=== PATIENT | female | born 1985 | race Caucasian/White ===

== ENCOUNTER 2021-07-15 08:31 | Emergency (ER) | payer OTHER, SELFPAY ==
[2021-07-15 08:44] VITALS: BP 128/92; PULSE 56; RESP 17; TEMP 36.6; O2SAT 97; BMI 35.6
--- NOTE | 2021-07-15 08:49 | HMH.EDGENADL ---
ED Disposition Clinical Impression: Bronchitis, COVID-19 Disposition: Home, Self-Care Condition on Discharge: Good Instructions: DI for Asthma -- Adult, Acute Bronchitis Additional Instructions: follow up pcp as needed Prescriptions: predniSONE [Prednisone 20mg Tab] 60 mg PO DAILY 5 Days #15 tab Transmission Status: Pending to [facility] Azithromycin [Zithromax 500mg Tab Tri-Sanchez] 500 mg PO DAILY #3 tab Transmission Status: Pending to [facility] Referrals: Magdaleno Luis [Primary Care Provider] - - Critical Care Critical Care Time: No Attestation: On 07/15/21, the high probability of a clinically significant, sudden or life threatening deterioration of the following system(s) required my full and direct attention, intervention and personal management. The time I documented below is in addition to time spent performing reported procedures but includes the following listed in this critical care notation. Medical Decision Making - Medical Records Medical records reviewed: Yes: I reviewed the patient's medical records. - Luis Inquiry Pt receiving controlled substance: No Vital Signs: 07/15/21 08:44 Temperature 97.8 F Temperature Source Oral Pulse Rate [Left Radial] 56 L Respiratory Rate 17 Blood Pressure [Right Arm] 128/92 H Blood Pressure Mean [Right Arm] 104 Blood Pressure Source [Right Arm] Automatic Cuff Blood Pressure Position [Right Arm] Sitting 02 Sat by Pulse Oximetry 97 Oxygen Delivery Method Room Air General Adult HPI - General Chief complaint: Shortness of Breath/Dyspnea Stated complaint: soa, covid pos 07/13 Time Seen by Provider: 07/15/21 08:45 Mode of Arrival: Ambulatory Limitations: No Limitations Description of Symptoms (Recalled from ER Triage Doc. by RN): pt to ed c/o soa. pt states she was covid+ wednesday and has increasingly gotten more soa. pt denies any other symptoms. - History of Present Illness HPI narrative: pos covid few days, today c/o wheezing and asthma Radiation: non-radiation Severity: moderate Consistency: intermittent Relieving factors: rest Exacerbating factors: other (activity) Associated symptoms: denies other symptoms - Related Data Home Medications Medication Instructions Recorded Confirmed aripiprazole 2 mg tablet 2 mg PO HS 04/15/21 04/15/21 spironolactone 100 mg tablet 100 mg PO DAILY 04/15/21 04/15/21 venlafaxine 100 mg tablet 100 mg PO DAILY 04/15/21 04/15/21 Previous Rx's Medication Instructions Recorded nystatin 100,000 unit/mL oral 100,000 unit BUCCAL DAILY 10 Days 04/15/21 suspension #10 ml Azithromycin [Zithromax 500mg Tab 500 mg PO DAILY #3 tab 07/15/21 Tri-Sanchez] predniSONE [Prednisone 20mg 60 mg PO DAILY 5 Days #15 tab 07/15/21 Tab] Allergies Allergy/AdvReac Type Severity Reaction Status Date / Time No Known Allergies Allergy Verified 04/15/21 18:34 [facility] History - Hepatitis A Screen Drug use history?: No High risk sexual behaviors?: No History of sexually transmitted infection?: No Currently employed?: No Childcare worker?: No Do you have indoor plumbing?: Yes Do you have electricity?: Yes Attestation statement:: This patient has been screened for Hepatitis A risk factors. Medical History: Reports:: Depression - Social History Smoking Status: Never smoker Alcohol Intake: current Alcohol Intake Frequency:: holidays/special occasions only Occupational Status: employed - Psychiatric History Pschychiatric History:: Reports:: Depression Family Hx:: Non-contributory ROS Obtained: Yes All systems reviewed & no additional complaints Physical Exam - General General appearance: alert, in no apparent distress - Head Head exam: atraumatic, normocephalic - Eye Eye exam: Present: normal appearance, PERRL, EOMI - Chest Chest inspection: Present: normal inspection, symmetric chest wall rise. Absent: tenderness - Respiratory Respiratory exam: Present: normal indu
[2021-07-15 08:55] VITALS: BP 128/92; PULSE 57; RESP 17; TEMP 36.6; O2SAT 98
== END 2021-07-15 08:56 | disposition home or self-care (01) ==
PROVIDERS: Emergency Provider Emergency Medicine; PCP Family Medicine
DX: J20.9 Acute bronchitis, unspecified (principal); U07.1 COVID-19
CPT/HCPCS: 99281

== ENCOUNTER 2022-02-04 19:52 | Emergency (ER) | payer OTHER, SELFPAY ==
[2022-02-04 19:55] VITALS: BP 135/91; PULSE 62; RESP 16; TEMP 36.7; O2SAT 98; BMI 34.2
--- NOTE | 2022-02-04 20:05 | ECG_ITS ---
APPROVED REPORT Exam: Resting ECG HR:59 bpm ECG Measurements Heart Rate 59 AXES AK 124 P 37 QRSd 89 QRS 45 QT 391 T 48 QTc 390 Conclusion SINUS BRADYCARDIA BORDERLINE ECG UNCONFIRMED REPORT Electronically signed by : Jv Sandoval MD 02/06/2022 17:05:45
--- NOTE | 2022-02-04 20:13 | HMH.EDGENADL ---
ED Disposition Clinical Impression: Pneumonia involving right lung Qualifiers: Pneumonia type: due to unspecified organism Lung location: unspecified part of lung Qualified Code(s): J18.9 - Pneumonia, unspecified organism Disposition: Home, Self-Care Condition on Discharge: Good Instructions: DI for Pneumonia -- Adult, DI for Atypical Pneumonia Additional Instructions: You have been evaluated for cough, congestion, shortness of breath, diagnosed with pneumonia on the right side. Please take antibiotics as prescribed. Take 5 more days of steroids. Try to rest. Tylenol and Motrin for aches, pains. Follow-up with your primary care doctor. Return to the emergency department for any new or worsening symptoms, chest pain, difficulty breathing, any other concerns. Prescriptions: predniSONE [Prednisone 20mg Tab] 40 mg PO BID #10 tab Transmission Status: Pending to [facility] Azithromycin [Z-Sanchez 250mg Tab] 250 mg PO DIRECTED #6 tab [facility] Referrals: Magdaleno Luis [Primary Care Provider] - Forms: Work/School Release Time of Disposition: 22:18 - Critical Care Critical Care Time: No Attestation: On , the high probability of a clinically significant, sudden or life threatening deterioration of the following system(s) required my full and direct attention, intervention and personal management. The time I documented below is in addition to time spent performing reported procedures but includes the following listed in this critical care notation. Medical Decision Making - Medical Records Medical records reviewed: Yes: I reviewed the patient's medical records. - Luis Inquiry Pt receiving controlled substance: No Vital Signs: 02/04/22 19:55 Temperature 98.1 F Temperature Source Oral Pulse Rate [Right] 62 Respiratory Rate 16 Blood Pressure [Right Arm] 135/91 H Blood Pressure Mean [Right Arm] 105 Blood Pressure Source [Right Arm] Automatic Cuff 02 Sat by Pulse Oximetry 98 Oxygen Delivery Method Room Air - Lab Data Lab Results 02/04/22 20:05: WBC 10.9 H, RBC 5.07, Hgb 15.0, Hct 46.1, MCV 91.1, MCH 29.5, MCHC 32.4, RDW 13.1, Plt Count 300, MPV 7.7, Neut % (Auto) 87.2 H, Lymph % (Auto) 8.3 L, [place] % (Auto) 2.7, Eos % (Auto) 0.3, Baso % (Auto) 1.5, Neut # (Auto) 9.5 H, Lymph # (Auto) 0.9, [place] # (Auto) 0.3, Eos # (Auto) 0.0, Baso # (Auto) 0.2, ESR 17 02/04/22 20:05: Sodium 139, Potassium 4.4, Chloride 104, Carbon Dioxide 26, Anion Gap 13.4, BUN 11, Creatinine 0.60, Estimated Creat Clear 195, Estimated GFR 114, Est GFR ( Amer) 138, Glucose 154 H, Calcium 10.0, Total Bilirubin 0.1 L, AST 33, ALT 35, Alkaline Phosphatase 109, Troponin I < 0.01, C-Reactive Protein 2.9, NT-Pro-B Natriuret Pep 28.0, Total Protein 8.0, Albumin 4.6, Globulin 3.4 H, Albumin/Globulin Ratio 1.4 02/04/22 20:05: SARS-CoV-2 (PCR) Not detected, Influenza A Untype (PCR) Not detected, Influenza Type B (PCR) Not detected Result diagrams: 02/04/22 20:05 02/04/22 20:05 Orders (Tests/Meds): ORDERS Category Date Time Status Complete Blood Count Auto Diff Stat Lab 02/04/22 20:05 Results Erythrocyte Sedimentation Rate Stat Lab 02/04/22 20:05 Results Troponin I Q3H Lab 02/04/22 23:15 Ordered Troponin I Q3H Lab 02/05/22 02:15 Ordered ECG Request by /Helga Stat Y 02/04/22 20:14 Ordered - Radiology Data #1 Image(s): Chest Image Reviewed: Yes I reviewed the patient's radiology results, Yes I have reviewed radiologist's interpretation Preliminary Findings: Normal/NAD IMPRESSION: 1. Small focus of reticulonodular interstitial prominence in the right upper lobe lateral to the hilum, which may just be prominent vascular shadows, or this could be a small focus of infection. 2. No consolidation. 3. Additional nonemergency and chronic findings as above. - ECG Data Tracing #1 Sinus rhythm with ventricular rate of 59 bpm. QRS 89, QTc 390. T wave in
--- NOTE | 2022-02-04 20:14 | XR_ITS ---
PROCEDURE INFORMATION: Exam: XR Chest Exam date and time: 02/04/2022 8:10 PM Age: 36 years old Clinical indication: Cough and shortness of breath; Sternal or substernal pain; Additional info: Short of breath, cough TECHNIQUE: Imaging protocol: Radiologic exam of the chest. Views: 2 views. COMPARISON: No relevant prior studies available. FINDINGS: Tubes, catheters and devices: Overlying rn cardiac electrodes. Lungs: Mild hypoventilation/low lung volumes. No consolidation. Question mild reticulonodular opacities lateral to the upper right hilum, projected over the posterior right 6th rib, which may be prominent vascular shadows versus infection. No focal retrosternal findings are seen on the lateral chest radiograph. Pulmonary vessels do not appear significantly congested. Pleural spaces: Unremarkable. No significant pleural effusion. No pneumothorax. Heart/Mediastinum: The cardiac silhouette is normal. Bones/joints: No acute fracture or listhesis. The sternum appears intact, as visualized. Organs: Cholecystectomy clips. IMPRESSION: 1. Small focus of reticulonodular interstitial prominence in the right upper lobe lateral to the hilum, which may just be prominent vascular shadows, or this could be a small focus of infection. 2. No consolidation. 3. Additional nonemergency and chronic findings as above.
[2022-02-04 20:34] LABS: Basophils # 0.2 K/mm3 (0-0.2); Basophils % 1.5 % (0.1-2.0); Eosinophils % 0.3 % (0.1-12.0); Hematocrit 46.1 % (37.0-47.0); Lymphocytes # 0.9 K/mm3 (0.7-4.5); Lymphocytes % 8.3 % (10-50); Mean Corpuscular HGB Conc 32.4 g/dL (31.8-35.4); Mean Corpuscular Hemoglobin 29.5 pg (27.0-31.2); Mean Corpuscular Volume 91.1 fl (81-99); Mean Platelet Volume 7.7 fl (7.4-10.4); Monocytes # 0.3 K/mm3 (0.1-1.0); Monocytes % 2.7 % (1.7-9.3); Neutrophils # 9.5 K/mm3 (1.8-7.8); Neutrophils % 87.2 % (37.0-80.0); Platelet Count 300 K/mm3 (142-424); Red Blood Count 5.07 M/mm3 (4.20-5.40); Red Cell Distribution Width 13.1 % (11.5-17.5); White Blood Count 10.9 K/mm3 (4.8-10.8)
[2022-02-04 20:52] LABS: MANUAL DIFFERENTIAL MANUAL DIFFERENTIAL (MANUAL DIFF)
[2022-02-04 20:58] LABS: Coronavirus 19, PCR Not Detected (NotDetected); Influenza A, PCR Not Detected (NotDetected); Influenza B, PCR Not Detected (NotDetected)
[2022-02-04 21:12] LABS: Erythrocyte Sedimentation Rate 17 mm/hr (0-20)
[2022-02-04 21:30] LABS: Alanine Aminotransferase 35 U/L (12-78); Albumin Level 4.6 g/dl (3.5-5.0); Albumin/Globulin Ratio 1.4 (1.1-1.8); Alkaline Phosphatase 109 U/L (38-126); Anion Gap 13.4 mEq/L (5-15); Aspartate Amino Transferase 33 U/L (14-36); Blood Urea Nitrogen 11 mg/dl (7-17); Carbon Dioxide 26 mmol/L (22.0-30.0); Chloride 104 mmol/L (98-107); Creatinine Clearance Estimated 195 mL/min (50-200); Estimated Glomerular Filt Rate 114 ml/min (>60); GFR (African American) 138 ML/MIN (>60); Globulin 3.4 g/dL (1.3-3.2); Glucose 154 mg/dl (74-100); Potassium 4.4 mmoL/L (3.5-5.1); Sodium 139 mmol/L (136-145)
[2022-02-04 21:36] LABS: Bilirubin,Total 0.1 mg/dl (0.2-1.3); C-Reactive Protein 2.9 mg/L (0-4)
[2022-02-04 21:58] LABS: Troponin I < 0.01 ng/ml (0.00-0.034)
[2022-02-04 22:15] VITALS: BP 125/81; PULSE 55; RESP 16; TEMP 36.7; O2SAT 98
[2022-02-04 22:18] LABS: Hypochromasia 1+; Lymphocytes % 8 % (10-50); Monocytes % 5 % (2-9); Neutrophils % 87 % (42-76); Platelet Estimate Normal; Total Cells Counted 100
== END 2022-02-04 22:25 | disposition home or self-care (01) ==
PROVIDERS: Emergency Provider Emergency Medicine; PCP Family Medicine
DX: J18.9 Pneumonia, unspecified organism (principal); R07.9 Chest pain, unspecified; R53.81 Other malaise; R53.82 Chronic fatigue, unspecified; Z20.822 Contact with and (suspected) exposure to COVID-19; M94.0 Chondrocostal junction syndrome [Tietze]; J45.909 Unspecified asthma, uncomplicated; F32.A Depression, unspecified; Z79.52 Long term (current) use of systemic steroids
CPT/HCPCS: 71046; 80053; 83880; 84484; 85007; 85025; 85651; 86140; 93005; 99284; C9803; U0003; U0005

== ENCOUNTER → 2022-04-21 13:55 | Outpatient (POV) | payer OTHER, SELFPAY | PROVIDERS: Visit Provider Dermatology | DX: Z00.00 Encounter for general adult medical examination without abnormal findings (principal) ==

== ENCOUNTER → 2023-05-06 14:36 | Outpatient (CLI) | payer OTHER, SELFPAY | PROVIDERS: PCP Family Medicine; Visit Provider Nurse Practitioner Family | DX: J06.9 Acute upper respiratory infection, unspecified (principal) | CPT/HCPCS: 87635 ==

== ENCOUNTER → 2023-06-01 14:07 | Outpatient (CLI) | payer OTHER, SELFPAY ==
[2023-06-01 13:54] LABS: Adenovirus,PCR Not Detected (NotDetected); Coronavirus 229E Not Detected (NotDetected); Coronavirus NL63 Not Detected (NotDetected); Coronavirus OC43 Not Detected (NotDetected); Coronovirus HKU1,PCR Not Detected (NotDetected); Human Metapneumovirus Not Detected (NotDetected); Influenza A, PCR Not Detected (NotDetected); Influenza AH1, 2009 Not Detected (NotDetected); Influenza AH1, PCR Not Detected (NotDetected); Influenza AH3,PCR Not Detected (NotDetected); Influenza B, PCR Not Detected (NotDetected); Parainfluenza 1, PCR Not Detected (NotDetected); Parainfluenza 2, PCR Not Detected (NotDetected); Parainfluenza 3, PCR Not Detected (NotDetected); Parainfluenza 4, PCR Not Detected (NotDetected); Respiratory Syncytial Virus Not Detected (NotDetected); Rhinovirus/Enterovirus Not Detected (NotDetected)
[2023-06-01 20:35] LABS: Coronavirus 19, PCR Detected (NotDetected)
== END ==
PROVIDERS: PCP Internal Medicine; Visit Provider Internal Medicine
DX: J06.9 Acute upper respiratory infection, unspecified (principal); U07.1 COVID-19
CPT/HCPCS: 87632; 87635

== ENCOUNTER 2023-07-27 16:05 | Outpatient (CLI) | payer OTHER, SELFPAY ==
[2023-07-27 16:37] LABS: Basophils % 0.4 % (0.1-2.0); Eosinophils # 0.1 K/mm3 (0.0-0.4); Hematocrit 42.6 % (37.0-47.0); Hemoglobin 14.3 g/dL (12.2-16.2); Lymphocytes # 2.8 K/mm3 (0.7-4.5); Lymphocytes % 36.8 % (10-50); Mean Corpuscular HGB Conc 33.5 g/dL (31.8-35.4); Mean Corpuscular Hemoglobin 29.7 pg (27.0-31.2); Mean Corpuscular Volume 88.5 fl (81-99); Mean Platelet Volume 7.5 fl (7.4-10.4); Monocytes # 0.3 K/mm3 (0.1-1.0); Monocytes % 4.4 % (1.7-9.3); Neutrophils # 4.3 K/mm3 (1.8-7.8); Neutrophils % 57.5 % (37.0-80.0); Platelet Count 209 K/mm3 (142-424); Red Blood Count 4.81 M/mm3 (4.20-5.40); Red Cell Distribution Width 13.1 % (11.5-17.5); White Blood Count 7.5 K/mm3 (4.8-10.8)
[2023-07-27 16:54] LABS: Alanine Aminotransferase 51 U/L (12-78); Albumin Level 4.6 g/dl (3.5-5.0); Alkaline Phosphatase 72 U/L (38-126); Anion Gap 10.1 mEq/L (5-15); Aspartate Amino Transferase 53 U/L (14-36); Bilirubin,Direct 0.2 mg/dl (0.0-0.4); Bilirubin,Indirect 0.3 mg/dL (0.0-0.9); Bilirubin,Total 0.5 mg/dl (0.2-1.3); Bilirubin,Unconjugated 0.3 mg/dL (0.0-1.1); Blood Urea Nitrogen 9 mg/dl (7-17); Calcium 9.2 mg/dl (8.4-10.2); Carbon Dioxide 29 mmol/L (22.0-30.0); Chloride 103 mmol/L (98-107); Chol/HDL Ratio 4.2 (1-3.5); Cholesterol 158 mg/dl (140-200); Estimated Glomerular Filt Rate 114 ml/min (>60); GFR (African American) 138 ML/MIN (>60); Glucose 94 mg/dl (74-100); HDL Cholesterol 38 mg/dl (40-60); Potassium 4.1 mmoL/L (3.5-5.1); Sodium 138 mmol/L (136-145); Total Protein,Serum 7.5 g/dl (6.3-8.2); Triglycerides 93 mg/dl (30-150); VLDL Cholesterol 19 mg/dL (0-40)
[2023-07-27 17:05] LABS: Direct LDL Cholesterol 82.01 mg/dL (100-129)
[2023-07-27 17:25] LABS: Thyroid Stimulating Hormone 1.01 uIU/mL (0.465-4.68)
[2023-07-27 17:27] LABS: Troponin I < 0.01 ng/ml (0.00-0.034)
[2023-07-27 18:01] LABS: Free T4 (Free Thyroxine) 0.95 ng/dl (0.78-2.19)
--- NOTE | 2023-07-27 20:07 | ECG_ITS ---
APPROVED REPORT Exam: Resting ECG HR:55 bpm ECG Measurements Heart Rate 55 AXES VA 135 P 21 QRSd 96 QRS 4 QT 438 T 11 QTc 427 Conclusion SINUS BRADYCARDIA BORDERLINE ECG UNCONFIRMED REPORT Electronically signed by : Jv Sandoval MD 07/28/2023 21:46:27
[2023-07-27 20:15] LABS: Troponin I < 0.01 ng/ml (0.00-0.034)
[2023-07-27 20:19] VITALS: BMI 37.2
== END 2023-07-27 23:59 ==
PROVIDERS: PCP Family Medicine; Visit Provider Internal Medicine
DX: R00.1 Bradycardia, unspecified (principal); R06.00 Dyspnea, unspecified; R07.89 Other chest pain; R07.9 Chest pain, unspecified; R53.83 Other fatigue; Z82.49 Family history of ischemic heart disease and other diseases of the circulatory system
CPT/HCPCS: 36415; 80048; 80061; 80076; 83735; 84439; 84443; 84484; 85025; 93005

== ENCOUNTER 2023-07-29 07:55 | Outpatient (CLI) | payer OTHER, SELFPAY ==
[2023-07-28 14:24] VITALS: BMI 36.0
[2023-07-29] VITALS (8 sets, daily range): BP systolic 90–124; BP diastolic 53–83; PULSE 52–67; RESP 16–17; TEMP 36.3; O2SAT 96–100
--- NOTE | 2023-07-29 07:55 | CT_ITS ---
APPROVED REPORT Cyber Defense Forensics Analyst: CLINICAL INDICATION Chest Pain TECHNIQUE Image Acquisition: A 128 slice MDCT scanner ([employer] ZeaVisiona View) was used for data acquisition. A noncontrast coronary calcium scan was performed. A CT attenuation threshold of 130 Hounsfield units (HU) was used for the detection of calcium in contiguous voxels of 1 sq mm in area to be counted as individual lesions. Bolus tracking in the ascending aorta with a threshold of 180 HU was performed. Immediately afterwards, ECG synchronized cardiac CT was then performed from the cardiac base to apex using retrospective gating with ECG tube current modulation. A total of 85 mL of Isovue 370 mg/mL contrast medium was administered at 5 mL/sec followed by a saline flush using a biphasic injection protocol. A tube voltage of 120 KVp was used. The patient received the following medications prior to the cardiac CT. 0.8 mg of sublingual nitroglycerin The average heart rate at the time of acquisition was 57 bpm and regular. Image Reconstruction Transaxial images were reconstructed at 0.67 mm slide thickness. Data was reviewed interactively on an advanced workstation capable of 2 and 3-dimensional displays in all conventional reconstruction formats, including multiplanar reformations, maximum intensity projections, curved multiplanar reformations, and volume rendered reconstructions. When applicable, selected routine images describing the relevant coronary anatomy and pathology were saved and sent to PACS. Complications None Technical Quality Overall image quality was good. Coronary artery opacification was adequate. Total DLP (Dose-Length Product) is 1492.4 mGy-cm. The reported value represents the total of one or more individual components during the CT acquisition of this date and at this time, and as such, the same value may appear in more than one CT report depending on the interpreting/reporting physicians. COMPARISON None FINDINGS CT Coronary Calcium Scoring LMA (Left Main Artery) = 0 LAD (Left Anterior Descending) = 0 LCX (Left Coronary Circumflex) = 0 RCA (Right Coronary Artery) = 0 Total Calcium Score = 0 using the AJ-130 method. The interpretation of the calcium heart score is based on the following continuum*: 0 = no calcified plaque detected (risk of coronary artery disease is very low ??? less than 5%) 1-10 = calcium detected in extremely minimal levels (risk of coronary diseases is still low ??? less than 10%) 11-100 = mild levels of plaque detected with certainty (mild or minimal narrowing of heart arteries is likely) 101-400 = definite,at least moderate levels of plaque detected (relatively high risk of a heart attack within 3-5 years) >401-999 = extensive levels of plaque detected (high risk of heart attack, high levels of vascular disease are present, high likelihood of at least one significant coronary narrowing) *The calcium heart score quantifies the burden of coronary calcification/plaque in the coronary arteries. The calcium heart score is not able to evaluate the presence or burden of non-calcified (i.e. soft) plaque. There is no identifiable calcification in the aortic valve, mitral annulus or mitral valve, pericardium, or myocardium. Coronary CT Angiography The coronary arterial system is right dominant. Quantitative Stenosis Grading: Left Main (LM): The left main originates normally from the left sinus of Valsalva. The LM bifurcates into the left anterior descending artery and left circumflex artery. The LM is patent with no evidence of atherosclerosis. Left Anterior Descending (LAD) and Diagonal Branches: The LAD gives off 2 diagonal branches. The LAD and its branches are patent with no evidence of atherosclerosis. There is no evidence of LAD bridge. Left Circumflex (LCX) and Obtuse Marginals (OM): The LCX gives off 2 Obtuse Marginal (OM) branches. The LCX and its branches are patent with no evidence of atherosclerosis. Right Coronary Artery (RCA): The RCA originates normally from the right sinus of Valsalva. The RCA gives off a posterior descending artery (PDA) and posterolateral (PL) branches. The RCA and its branches are patent with no evidence of atherosclerosis. Non-Coronary Cardiac Findings: Analysis of the left ventricular (LV) structure and function was performed after 3-D reconstruction of the LV from axial images, with user-corrected automatic contouring for assessment of LV volumes and user-defined reconstruction from oblique planes for measurement of 3-D cardiac structure and function. LVEDV: 189 mL LVESV: 91 mL SV: 98 mL LVEF: 52% -The left ventricle is normal in size with normal left ventricular systolic function. -There is no left atrial appendage filling defect. Two right pulmonary veins and two left pulmonary veins drain normally into the left atrium. -No pericardial thickening or calcification. -Central and branch pulmonary arteries in the [id number] are unremarkable. -Thoracic aorta within the visualized thoracic aortic-branches in the [id number] is unremarkable. Extracardiac Structures Hiatal hernia is present. IMPRESSION -No coronary calcification with an Agatston score = 0 using the AJ-130 method. -No evidence of significant flow-limiting atherosclerosis of the coronary arteries. No evidence of coronary anomalies. -CAD-RADS 0. Management recommendations per ACC/AHA guidelines*, as clinically appropriate. -Hiatal hernia is incidentally noted. *Recommendations: CAD RADS 0: Reassurance. Consider non-atherosclerotic causes of chest pain. CAD RADS 1: Consider non-atherosclerotic causes of chest pain. Consider preventive therapy and risk factor modification. CAD RADS 2: Consider non-atherosclerotic causes of chest pain. Consider preventive therapy and risk factor modification, particularly for patients with nonobstructive plaque in multiple segments. CAD RADS 3: Consider further functional testing. Consider symptom-guided anti-ischemic and preventive pharmacotherapy as well as risk factor modification per published guideline statements. CAD RADS 4A: Consider further functional testing or invasive coronary angiography with revascularization per published guideline statements. Consider symptom-guided anti-ischemic and preventive pharmacotherapy as well as risk factor modification per published guideline statements. CAD RADS 4B: Invasive coronary angiography recommended with revascularization per published guideline statements. Consider symptom-guided anti-ischemic and preventive pharmacotherapy as well as risk factor modification per published guideline statements. CAD RADS 5: Consider invasive angiography and/or viability assessment with revascularization per published guideline statements. Consider symptom-guided anti-ischemic and preventive pharmacotherapy as well as risk factor modification per published guideline statements. CRITICAL RESULT None COMMUNICATION Per this written report The coronary and cardiac findings of this CCTA were reviewed, reported, and signed by Alcides Alcala MD ([employer]) Conclusion Electronically signed by : Kira Alcala MD 07/29/2023 12:26:00
[2023-07-29] MEDS: NITROGLYCERIN 0.4MG SL TABLET SL (08:37)
[2023-07-29] MEDS: 0.9 % SODIUM CHLORIDE 50 ML VIAL IV (08:53)
[2023-07-29] MEDS: IOPAMIDOL-370 (76%);100ML BOTTLE 100 ML IV (08:53)
[2023-07-29] MEDS: SODIUM CHLORIDE 0.9% 10ML SYR (RAD ONLY) 10 ML IV (08:54)
--- NOTE | 2023-07-29 09:23 | CA_ITS ---
APPROVED REPORT EXAM: Comprehensive 2D, Doppler, and color-flow Echocardiogram Curing Supervisor: Rosie Ji RVT Ht: 5 ft 4 in Wt: 210lbs BSA: 2.00 BP: 135/77 mmHg Indications: CP,BRADYCARDIA,CROOK,HLD,FATIGUE 2D Dimensions LA Volume 52.10 mL LA Volume Index 26.05 mL/m2 (M/F) 16-34 M-Mode Dimensions RVDd 2.94 cm (0.9-2.6) LA Diam 3.26 cm (1.9-4.0) LVDd 3.69 cm (3.5-5.7) LVDs 2.30 cm (3.5-5.7) IVSd 0.83 cm (0.6-1.1) PWd 0.64 cm (0.6-1.1) EF (Teich) 68.70% FS 37.70% EDV (Teich) 57.80 mL TAPSE 2.65 (<1.7) ESV (Teich) 18.10 mL LV Diastology E Decel Time 150 (160-240 msec) E/A Ratio 1.9 Aortic Valve JT Index 1.21 cm2/m2 AoV Peak James. 154.0 (50-130 cm/s) AO Peak GR. 9.50 mmHg AO Mean GR. 4.60 (<5 mmHg) AO VTI 34.8 (18-25 cm) JT (VTI) 2.48 (2.5-4.5 cm2) Mitral Valve MV E Max James. 102.0 (40-130 cm/s) MV A Velocity 54.0 (40-130 cm/s) E/A Ratio 1.87 MV PHT 44.0 ms Pulmonary Valve PV Peak Velocity 74.0 (50-150 cm/s) Left Ventricle The left ventricle is normal size. The left ventricular systolic function is normal. The left ventricular ejection fraction is within the normal range. There is normal left ventricular wall thickness. There is normal LV segmental wall motion. The left ventricular diastolic function is normal. LVEF is 55%. Right Ventricle The right ventricle is normal size. The right ventricular systolic function is normal. Atria The left atrium size is normal. The right atrium size is normal. Color Doppler evaluation across the interatrial septum is not performed in the study. Aortic Valve The aortic valve opens well. There is no aortic valvular stenosis. Trace aortic regurgitation. Mitral Valve The mitral valve is normal in structure. No evidence of mitral valve stenosis. There is no mitral valve regurgitation noted. Tricuspid Valve The tricuspid valve leaflets are thin and pliable. Trace tricuspid regurgitation. There is insufficient TR jet to estimate RVSP. Pulmonic Valve The pulmonary valve is normal in structure. Trace pulmonic regurgitation. Great Vessels The aortic root is normal in size. The ascending aorta is normal in size. IVC is normal in size and collapses >50% with inspiration. Pericardium There is no pericardial effusion. Other Information Study Quality: Adequate Conclusion Normal biventricular systolic function. No significant valvular stenosis or regurgitation. Electronically signed by : Kira Alcala MD 07/31/2023 23:00:40
== END 2023-07-29 09:21 | disposition home or self-care (01) ==
PROVIDERS: PCP Family Medicine; Visit Provider Internal Medicine
DX: R06.09 Other forms of dyspnea (principal); R07.89 Other chest pain; R00.1 Bradycardia, unspecified; R07.9 Chest pain, unspecified; R53.83 Other fatigue
CPT/HCPCS: 75571; 75574; 93306; Q9967

== ENCOUNTER 2023-07-30 15:38 | Outpatient (CLI) | payer OTHER, SELFPAY ==
--- NOTE | 2023-07-30 | ECG_ITS ---
APPROVED REPORT Exam: Resting ECG HR:50 bpm ECG Measurements Heart Rate 50 AXES [place] 135 P 51 QRSd 97 QRS 66 QT 454 T 52 QTc 427 Conclusion SINUS BRADYCARDIA LOW QRS VOLTAGE IN PRECORDIAL LEADS [QRS DEFLECTION < 1.0 mV IN CHEST LEADS] BORDERLINE ECG UNCONFIRMED REPORT Electronically signed by : Jv Sandoval MD 08/02/2023 17:59:06
== END 2023-07-30 23:59 ==
LOC: RT 15:39
PROVIDERS: PCP Internal Medicine; Visit Provider Internal Medicine
DX: R00.1 Bradycardia, unspecified (principal)
CPT/HCPCS: 93005; 93225; 93226

== ENCOUNTER 2023-08-04 11:20 | Outpatient (CLI) | payer OTHER, SELFPAY | END 2023-08-04 23:59 | LOC: RT 11:20 | PROVIDERS: PCP Internal Medicine; Visit Provider Internal Medicine | DX: R00.1 Bradycardia, unspecified (principal) | CPT/HCPCS: 93270 ==

== ENCOUNTER 2023-10-14 15:42 | Emergency (ER) | payer OTHER, SELFPAY ==
[2023-10-14 15:45] VITALS: BP 146/68; PULSE 56; RESP 18; TEMP 36.7; O2SAT 98; BMI 35.2
--- NOTE | 2023-10-14 16:30 | ED_ITS ---
Discharge Plan Disposition Patient Disposition: Home, Self-Care Condition: Good Prescriptions Prescriptions: New cyclobenzaprine 10 mg Tablet 10 mg PO BID PRN (Reason: Muscle Spasm) Qty: 20 0RF methylprednisolone 4 mg Tablets,Dose Pack 4 mg PO DIRECTED 6 Days Qty: 21 0RF Rx Instructions: Take 1 pack as directed for 6 days No Action spironolactone 100 mg tablet 200 mg PO DAILY albuterol sulfate 90 mcg/actuation HFA aerosol inhaler 2 puff inhalation Q4-6H PRN (Reason: bronchospasm) Qty: 8.5 1RF rosuvastatin 10 mg tablet 10 mg PO DAILY Claritin-D 24 Hour 10-240 mg tablet extended release 24 hr 1 tab PO DAILY prednisone 10 mg tablets,dose pack See Rx Instructions PO PER PKG DIR Qty: 21 0RF Rx Instructions: PO PER PKG DIR metformin 500 mg tablet extended release 24 hr PO omeprazole 40 mg capsule,delayed release(DR/EC) 40 mg PO QDAY Qty: 30 1RF Rx Instructions: swallow whole; do not crush, chew, dissolve, or cut/break venlafaxine 150 MG capsule,extended release 24hr 150 mg PO DAILY Referrals Follow up/Referrals: Tayo David MD [Primary Care Provider] - See instructions Activity Restrictions/Add. Instructions Additional Instructions/Restrictions: Go home and rest. It would be best if you rested tomorrow too. No heavy lifting. No twisting. Take the oral medications as directed. The muscle relaxer (cyclobenzaprine--Flexeril) will make you drowsy, so don't drive or operate heavy machinery after taking it. Don't start the oral steroids (medrol dose pack) until tomorrow, since you had the shots in here today. Follow up with your regular doctor. GO TO THE ER FOR ANY WORSENING SYMPTOMS OR CONCERN, ESPECIALLY BOWEL OR BLADDER ISSUES, SADDLE AREA NUMBNESS, FEVER, ETC Clinical Impressions Clinical Impression: Low back pain Stand Alone Forms Stand Alone Forms: Work/School Release Instructions Patient Instructions: Cyclobenzaprine, Methylprednisolone, Dexamethasone Injection Discharge ED Provider: Matthias Rice [facility] [place] [facility] HPI General Stated complaint: Back pain no injury Mode of Arrival: Ambulatory Source of Information: Patient Limitations: No Limitations Time Seen by Provider: 10/14/23 16:18 Description of Symptoms (Recalled from Triage Doc. by RN): Pt's symptoms are nack pain for 3 days. She tested urine at work and its not a UTI. HEENT Symptoms (Recalled from RN notes): Yes Resp Symptoms (Recalled from RN notes): No Skin Symptoms (Recalled from RN notes): No MS Symptoms (Recalled from RN notes): No Functional Status (Recalled from RN notes): n/a History of Present Illness Provider Complaint: She states that for the past 3 days she has had worsening low back pain. She denies any urinary symptoms. She denies any injury. She denies that she is . Related Data Home Medications Medication Instructions Recorded Confirmed spironolactone 100 mg tablet 200 mg PO DAILY Weight loss 04/15/21 10/07/23 venlafaxine 150 mg 150 mg PO DAILY depression/anxiety 02/04/22 10/07/23 capsule,extended release 24 hr rosuvastatin 10 mg tablet 10 mg PO DAILY 06/01/23 10/07/23 metformin 500 mg tablet,extended mg PO 08/30/23 10/07/23 release 24 hr loratadine-pseudoephedrine ER 10 1 tab PO DAILY 10/07/23 10/07/23 mg-240 mg tablet,extended [id number] (Claritin-D 24 Hour) Previous Rx's Medication Instructions Recorded albuterol sulfate 90 mcg/actuation 2 puff inhalation Q4-6H PRN 05/04/23 aerosol inhaler bronchospasm #8.5 grams omeprazole 40 mg capsule,delayed 40 mg PO QDAY #30 caps 07/29/23 release prednisone 10 mg tablets in a dose See Rx Instructions PO PER PKG DIR 10/07/23 pack #21 tabs cyclobenzaprine 10 mg tablet 10 mg PO BID PRN Muscle Spasm #20 10/14/23 tabs methylprednisolone 4 mg tablets in 4 mg PO DIRECTED 6 days #21 tabs 10/14/23 a dose pack Allergies Allergy/AdvReac Type Severity Reaction Status Date / Time No Known Allergies Allergy Verified 10/14/23 16:04 Worker's Comp Is this a Worker's Comp case?: No [facility] Disclaimer: The information contained in this section may have been updated after the patient was seen, as this information can be updated by other users. Medical History Asthma Bronchitis COVID-19 Family history of ischemic heart disease before age 50 Hyperlipidemia PCOS (polycystic ovarian syndrome) Pneumonia involving right lung Surgical History History of section History of hysterectomy Family History Other Family history of myocardial infarction Social History Smoking Status: Never smoker alcohol intake: never current occupational status: employed Travel in the last 8 weeks: None ROS Obtained: Yes All systems reviewed & no additional complaints except as documented Constitutional Constitutional: Denies chills and Denies fever(s) Eyes Eyes: Denies eye discharge ENT Ears, Nose, Mouth, and Throat: Denies dizziness, Denies otalgia, Denies neck pain and Denies sore throat Cardiovascular Cardiovascular: Denies chest pain Respiratory Respiratory: Denies shortness of breath, Denies chest congestion, Denies cough, Denies stridor and Denies wheezing Gastrointestinal Gastrointestingal: Denies nausea or vomiting Musculoskeletal Musculoskeletal: Reports as per HPI, Reports back pain and Denies neck pain Integumentary/Breasts Skin/Breast: Denies rash Neurologic Neurologic: Denies dizziness and Denies paresthesias Allergic/Immunologic Allergic/Immunologic: Denies wheezing Physical Exam General General appearance: alert and in no apparent distress Head Head exam: atraumatic, normocephalic and normal inspection Eye Eye exam: Present normal appearance, PERRL and EOMI ENT ENT exam: Present normal exam, normal oropharynx, mucous membranes moist, TM's normal bilaterally and normal external ear exam Neck Neck exam: Present normal inspection, full ROM and trachea midline; Absent meningismus or lymphadenopathy Chest Chest inspection: Present normal inspection and symmetric chest wall rise; Absent tenderness Respiratory Respiratory exam: Present normal lung sounds bilaterally; Absent respiratory distress Cardiovascular Cardiovascular exam: Present regular rate and normal rhythm; Absent JVD Abdominal Exam Abdominal exam: Present soft and normal bowel sounds; Absent distention, tenderness or guarding Extremities Exam Extremities exam: Present normal inspection, full ROM and normal capillary refill; Absent calf tenderness Back Exam Back exam: Present normal inspection; Absent tenderness, CVA tenderness (R), CVA tenderness (L), muscle spasm, paraspinal tenderness, vertebral tenderness, rashes, sciatic notch tenderness (R), sciatic notch tenderness (L), straight leg raise (R) or straight leg raise (L) Neurological Exam Neurological exam: Present alert, oriented X3, CN II-XII intact, normal gait and reflexes normal; Absent motor sensory deficit Expanded Neurological Exam Speech: Present fluid speech Cranial nerves: Normal: EOM function (II, III, IV, ), facial sensation (V), facial palsy (VII), gag reflex (IX), spinal accessory function (XI) and tongue deviation (XII) Cerebellar function: normal gait Motor strength - LUE: 5/5 Motor strength - RUE: 5/5 Motor strength - LLE: 5/5 Motor strength - RLE: 5/5 Upper motor neuron exam: Normal: maría neglect and sensory extinction Sensory exam upper extremity: Normal: light touch and 2 point discrimination Sensory exam lower extremity: Normal: light touch and 2 point discrimination DTR: 2+: biceps (L), biceps (R), patellar (L), patellar (R), Achilles tendon (L) and Achilles tendon (R) Spinal cord function: Absent saddle anesthesia Psychiatric Psychiatric exam: Present normal affect and normal mood Skin Skin exam: Present warm, dry, intact and normal color Lymphatic Lymphatic Findings: no adenopathy Medical Decision Making Medical Records Medical records reviewed: No I reviewed the patient's medical records. Luis Inquiry Pt receiving controlled substance: No Vital Signs: 10/14/23 15:45 Temperature 98.0 F Temperature Source Oral Pulse Rate [Right Radial] 56 L Respiratory Rate 18 Blood Pressure [Right Arm] 146/68 H Blood Pressure Mean [Right Arm] 94 Blood Pressure Source [Right Arm] Automatic Cuff Blood Pressure Position [Right Arm] Sitting 02 Sat by Pulse Oximetry 98 Oxygen Delivery Method Room Air
[2023-10-14] MEDS: DEXAMETHASONE 4MG/ML 1ML VIAL 8 MG IM (16:50)
[2023-10-14] MEDS: KETOROLAC 60MG/2ML VIAL 60 MG IM (16:50)
[2023-10-14 17:29] VITALS: BP 146/68; PULSE 56; RESP 18; TEMP 36.7; O2SAT 98
== END 2023-10-14 17:29 | disposition home or self-care (01) ==
PROVIDERS: Emergency Provider Nurse Practitioner Family; PCP Internal Medicine
DX: M54.50 Low back pain, unspecified (principal)
CPT/HCPCS: 96372; 99204; 99212; G0463

== ENCOUNTER 2023-12-01 10:36 | Outpatient (CLI) | payer OTHER, SELFPAY ==
[2023-12-01 16:00] LABS: Basophils # 0.1 K/mm3 (0-0.2); Basophils % 0.8 % (0.1-2.0); Eosinophils # 0.1 K/mm3 (0.0-0.4); Eosinophils % 1.1 % (0.1-12.0); Hematocrit 42.2 % (37.0-47.0); Hemoglobin 14.4 g/dL (12.2-16.2); Lymphocytes # 2.2 K/mm3 (0.7-4.5); Lymphocytes % 31.5 % (10-50); Mean Corpuscular HGB Conc 34.2 g/dL (31.8-35.4); Mean Corpuscular Hemoglobin 29.7 pg (27.0-31.2); Mean Corpuscular Volume 86.8 fl (81-99); Mean Platelet Volume 7.6 fl (7.4-10.4); Monocytes # 0.3 K/mm3 (0.1-1.0); Monocytes % 4.5 % (1.7-9.3); Neutrophils # 4.3 K/mm3 (1.8-7.8); Neutrophils % 62.1 % (37.0-80.0); Platelet Count 251 K/mm3 (142-424); Red Blood Count 4.86 M/mm3 (4.20-5.40); Red Cell Distribution Width 13.9 % (11.5-17.5)
== END 2023-12-01 23:59 | disposition home or self-care (01) ==
LOC: LAB.DROPOF 12-02 10:36
PROVIDERS: PCP Internal Medicine; Visit Provider Internal Medicine
DX: R10.31 Right lower quadrant pain (principal); Z87.442 Personal history of urinary calculi
CPT/HCPCS: 85025

== ENCOUNTER 2024-02-11 08:00 | Emergency (ER) | payer OTHER, SELFPAY ==
[2024-02-11 08:01] VITALS: BP 127/79; PULSE 60; RESP 18; TEMP 36.6; O2SAT 96; BMI 34.9
--- NOTE | 2024-02-11 08:18 | XR_ITS ---
FINAL REPORT CLINICAL HISTORY: fall/pain FINDINGS: Left shoulder Three views were obtained. There is no acute fracture or dislocation. The joint spaces appear normal. No soft tissue abnormality is identified. IMPRESSION: No acute process. Reviewed, Interpreted and Dictated by Pawel Costello MD Transcribed by Kaci Ornelas Authenticated and [facility]
--- NOTE | 2024-02-11 08:18 | XR_ITS ---
FINAL REPORT CLINICAL HISTORY: fall/pain FINDINGS: Left clavicle Two views were obtained. There is no acute fracture or dislocation. There is old healed fracture deformity of the distal clavicle. The joint spaces appear normal. No soft tissue abnormality is identified. IMPRESSION: No acute process. Reviewed, Interpreted and Dictated by Pawel Costello MD Transcribed by Kaci Ornelas Authenticated and [facility]
--- NOTE | 2024-02-11 08:24 | EXP.UTC ---
Discharge Plan Disposition Patient Disposition: Home, Self-Care Condition: Good Prescriptions Prescriptions: New ibuprofen 600 mg tablet 600 mg PO Q6HP PRN (Reason: Mild Pain) Qty: 30 0RF No Action spironolactone 100 mg tablet 150 mg PO DAILY albuterol sulfate 90 mcg/actuation HFA aerosol inhaler 2 puff inhalation Q4-6H PRN (Reason: bronchospasm) Qty: 8.5 1RF metformin 500 mg tablet extended release 24 hr 500 mg PO BID doxycycline hyclate 20 mg tablet 20 mg PO prednisone 10 mg tablet 10 mg PO DIRECTED Qty: 32 0RF Rx Instructions: see taper instructions: 4 tabs po qam x 5 days; 3 tabs po qam x 2 days; 2 tabs po qam x 2 days; 1 tab po qam x 2 days; then stop famotidine 20 mg tablet 20 mg PO HS Qty: 30 2RF meloxicam 15 mg tablet 15 mg PO DAILY Qty: 30 1RF Claritin-D 24 Hour 10-240 mg tablet extended release 24 hr 1 tab PO DAILY Qty: 90 1RF venlafaxine 150 MG capsule,extended release 24hr 150 mg PO DAILY cyclobenzaprine 10 mg Tablet 10 mg PO BID PRN (Reason: Muscle Spasm) Qty: 20 0RF Referrals Follow up/Referrals: Tayo David MD [Primary Care Provider] - See instructions Activity Restrictions/Add. Instructions Additional Instructions/Restrictions: Rest the extremity. Take ibuprofen for pain. I sent in a prescription to your pharmacy. Follow up with Dr. Cotto (orthopedics). I put in a referral but you need to call his office and schedule an appointment. Follow up with your regular doctor. GO TO THE ER FOR ANY WORSENING SYMPTOMS Clinical Impressions Clinical Impression: Left shoulder pain Stand Alone Forms Stand Alone Forms: Work/School Release Instructions Patient Instructions: How to Use a Sling, DI for Shoulder Pain Print Language Print Language: Nepalese Discharge ED Provider: Matthias Rice [facility] General Stated complaint: AO 02/10/24 inj to left shoulder Time Seen by Provider: 02/11/24 08:24 History of Present Illness Provider Complaint: She states that she fell 1 day ago and came down on her left shoulder. Since then she has had left shoulder and upper arm pain. She denies any neck pain or injury. Related Data Home Medications ?Medication ?Instructions ?Recorded ?Confirmed venlafaxine 150 mg 150 mg PO DAILY depression/anxiety 02/04/22 01/31/24 capsule,extended release 24 hr doxycycline hyclate 20 mg tablet 20 mg PO 12/01/23 01/31/24 metformin 500 mg tablet,extended 500 mg PO BID 01/31/24 01/31/24 release 24 hr spironolactone 100 mg tablet 150 mg PO DAILY Weight loss 01/31/24 01/31/24 Previous Rx's ?Medication ?Instructions ?Recorded albuterol sulfate 90 mcg/actuation 2 puff inhalation Q4-6H PRN 05/04/23 aerosol inhaler bronchospasm #8.5 grams cyclobenzaprine 10 mg tablet 10 mg PO BID PRN Muscle Spasm #20 10/14/23 tabs famotidine 20 mg tablet 20 mg PO HS For GI protection 01/31/24 while on NSAID #30 tabs meloxicam 15 mg tablet 15 mg PO DAILY #30 tabs 01/31/24 prednisone 10 mg tablet 10 mg PO DIRECTED #32 tabs 01/31/24 loratadine-pseudoephedrine ER 10 1 tab PO DAILY #90 tabs 02/03/24 mg-240 mg tablet,extended [id number] (Claritin-D 24 Hour) ibuprofen 600 mg tablet 600 mg PO Q6HP PRN Mild Pain #30 02/11/24 tabs Allergies Allergy/AdvReac Type Severity Reaction Status Date / Time No Known Allergies Allergy Verified 01/31/24 16:20 [facility] Disclaimer: The information contained in this section may have been updated after the patient was seen, as this information can be updated by other users. Medical History Asthma PCOS (polycystic ovarian syndrome) Hyperlipidemia Family history of ischemic heart disease before age 50 Pneumonia involving right lung COVID-19 Bronchitis Surgical History History of section History of hysterectomy Family History (Reviewed 0
[2024-02-11 09:24] VITALS: BP 127/79; PULSE 60; RESP 17; TEMP 36.6; O2SAT 96
== END 2024-02-11 09:26 | disposition home or self-care (01) ==
PROVIDERS: Emergency Provider Nurse Practitioner Family; PCP Internal Medicine
DX: M25.512 Pain in left shoulder (principal); W19.XXXA Unspecified fall, initial encounter
CPT/HCPCS: 73000; 73030; 99212; 99214; G0463

== ENCOUNTER 2024-02-22 12:13 | Outpatient (CLI) | payer OTHER, SELFPAY ==
[2024-02-22 12:58] LABS: Basophils % 0.7 % (0.1-2.0); Eosinophils # 0.1 K/mm3 (0.0-0.4); Eosinophils % 1.9 % (0.1-12.0); Hematocrit 42.9 % (37.0-47.0); Hemoglobin 13.7 g/dL (12.2-16.2); Lymphocytes # 1.8 K/mm3 (0.7-4.5); Mean Corpuscular HGB Conc 31.9 g/dL (31.8-35.4); Mean Corpuscular Hemoglobin 29.2 pg (27.0-31.2); Mean Corpuscular Volume 91.5 fl (81-99); Mean Platelet Volume 7.9 fl (7.4-10.4); Monocytes # 0.3 K/mm3 (0.1-1.0); Monocytes % 4.4 % (1.7-9.3); Neutrophils # 3.6 K/mm3 (1.8-7.8); Platelet Count 227 K/mm3 (142-424); Red Blood Count 4.69 M/mm3 (4.20-5.40); Red Cell Distribution Width 12.9 % (11.5-17.5); White Blood Count 5.8 K/mm3 (4.8-10.8)
[2024-02-22 13:07] LABS: D-Dimer 0.34 ug/mL (0.0-0.5)
[2024-02-22 13:12] LABS: Albumin Level 4.4 g/dl (3.5-5.0); Chloride 104 mmol/L (98-107); Potassium 4.1 mmoL/L (3.5-5.1); Sodium 138 mmol/L (136-145)
[2024-02-22 13:14] LABS: Bilirubin,Unconjugated 0.4 mg/dL (0.0-1.1); Blood Urea Nitrogen 7 mg/dl (7-17); Estimated Glomerular Filt Rate 113 ml/min (>60); GFR (African American) 137 ML/MIN (>60)
[2024-02-22 13:15] LABS: Alanine Aminotransferase 65 U/L (12-78); Alkaline Phosphatase 82 U/L (38-126); Anion Gap 9.1 mEq/L (5-15); Aspartate Amino Transferase 49 U/L (14-36); Bilirubin,Direct 0.4 mg/dl (0.0-0.4); Bilirubin,Indirect 0.4 mg/dL (0.0-0.9); Bilirubin,Total 0.8 mg/dl (0.2-1.3); Calcium 9.2 mg/dl (8.4-10.2); Carbon Dioxide 29 mmol/L (22.0-30.0); Chol/HDL Ratio 5.3 (1-3.5); Cholesterol 203 mg/dl (140-200); Glucose 98 mg/dl (74-100); HDL Cholesterol 38 mg/dl (40-60); Magnesium 1.8 mg/dl (1.6-2.3); Total Protein,Serum 6.8 g/dl (6.3-8.2); Triglycerides 233 mg/dl (30-150); VLDL Cholesterol 47 mg/dL (0-40)
[2024-02-22 13:25] LABS: C-Reactive Protein 5.3 mg/L (0-4)
[2024-02-22 13:30] LABS: Direct LDL Cholesterol 109.56 mg/dL (100-129)
[2024-02-22 13:35] LABS: Erythrocyte Sedimentation Rate 16 mm/hr (0-20); Troponin I < 0.01 ng/ml (0.00-0.034)
[2024-02-22 13:40] LABS: Free T4 (Free Thyroxine) 0.98 ng/dl (0.78-2.19)
[2024-02-22 13:53] LABS: Thyroid Stimulating Hormone 0.83 uIU/mL (0.465-4.68)
== END 2024-02-22 23:59 | disposition home or self-care (01) ==
LOC: LAB 12:14
PROVIDERS: PCP Internal Medicine; Visit Provider Internal Medicine
DX: R07.9 Chest pain, unspecified (principal); R06.00 Dyspnea, unspecified; R53.83 Other fatigue; R00.1 Bradycardia, unspecified; Z82.49 Family history of ischemic heart disease and other diseases of the circulatory system
CPT/HCPCS: 36415; 80048; 80061; 80076; 83735; 84439; 84443; 84484; 85025; 85378; 85651; 86140

== ENCOUNTER 2024-05-03 08:10 | Outpatient (CLI) | payer OTHER, SELFPAY ==
[2024-05-03 15:56] LABS: Basophils % 0.6 % (0.1-2.0); Eosinophils # 0.1 K/mm3 (0.0-0.4); Hematocrit 40.6 % (37.0-47.0); Hemoglobin 14.1 g/dL (12.2-16.2); Lymphocytes % 31.5 % (10-50); Mean Corpuscular HGB Conc 34.8 g/dL (31.8-35.4); Mean Corpuscular Hemoglobin 30.3 pg (27.0-31.2); Mean Corpuscular Volume 87.1 fl (81-99); Mean Platelet Volume 8.5 fl (7.4-10.4); Monocytes # 0.3 K/mm3 (0.1-1.0); Monocytes % 4.2 % (1.7-9.3); Neutrophils # 3.9 K/mm3 (1.8-7.8); Neutrophils % 62.7 % (37.0-80.0); Platelet Count 275 K/mm3 (142-424); Red Blood Count 4.66 M/mm3 (4.20-5.40); Red Cell Distribution Width 13.3 % (11.5-17.5); White Blood Count 6.2 K/mm3 (4.8-10.8)
[2024-05-03 16:43] LABS: Alanine Aminotransferase 43 U/L (12-78); Albumin Level 4.5 g/dl (3.5-5.0); Albumin/Globulin Ratio 2.1 (1.1-1.8); Alkaline Phosphatase 78 U/L (38-126); Anion Gap 14.6 mEq/L (5-15); Aspartate Amino Transferase 39 U/L (14-36); Bilirubin,Total 0.6 mg/dl (0.2-1.3); Blood Urea Nitrogen 11 mg/dl (7-17); Calcium 9.2 mg/dl (8.4-10.2); Carbon Dioxide 29 mmol/L (22.0-30.0); Chloride 99 mmol/L (98-107); Chol/HDL Ratio 4.3 (1-3.5); Cholesterol 196 mg/dl (140-200); Estimated Glomerular Filt Rate 95 ml/min (>60); GFR (African American) 115 ML/MIN (>60); Globulin 2.1 g/dL (1.3-3.2); Glucose 93 mg/dl (74-100); HDL Cholesterol 46 mg/dl (40-60); Potassium 4.6 mmoL/L (3.5-5.1); Sodium 138 mmol/L (136-145); Total Protein,Serum 6.6 g/dl (6.3-8.2); Triglycerides 110 mg/dl (30-150); VLDL Cholesterol 22 mg/dL (0-40)
[2024-05-03 16:55] LABS: Direct LDL Cholesterol 133.15 mg/dL (100-129)
[2024-05-03 17:14] LABS: Thyroid Stimulating Hormone 1.36 uIU/mL (0.465-4.68)
== END 2024-05-03 23:59 | disposition home or self-care (01) ==
LOC: LAB.DROPOF 05-04 13:04
PROVIDERS: PCP Internal Medicine; Visit Provider Internal Medicine
DX: E78.5 Hyperlipidemia, unspecified (principal); R00.1 Bradycardia, unspecified; R11.2 Nausea with vomiting, unspecified; K62.5 Hemorrhage of anus and rectum
CPT/HCPCS: 80050; 80053; 80061; 84443; 85025